=== PATIENT | female | born 1985 | race Caucasian/White ===

== ENCOUNTER → 2020-05-28 07:57 | Outpatient (CLI) | payer OTHER, SELFPAY ==
--- NOTE | ~2020-05-28 | US_ITS ---
US breast RT complete DATE: 05/28/2020 08:30 INDICATION: Right breast lump TECHNIQUE: High-resolution ultrasound imaging and color flow imaging targeted to lump at 3-4:00 area 10 cm from nipple COMPARISON: None FINDINGS: At L3-4 o'clock 10 cm from the nipple at the area of a visible small lump there is a rounde d 4.7 mm complicated cyst with through transmission and posterior enhancement within the skin, with s uggestion of a small tract toward the skin surface. Infected sebaceous cyst is suspected. IMPRESSION: BI-RADS Category 2: Benign finding; probable infected sebaceous cyst Reviewed, dictated and finalized at [facility]. Reviewed, dictated and finalized at location A. IMPRESSION: BI-RADS Category 2: Benign finding; probable infected sebaceous cys t
== END ==
PROVIDERS: PCP Nurse Practitioner Family; Visit Provider Nurse Practitioner
DX: N63.14 Unspecified lump in the right breast, lower inner quadrant (principal)
CPT/HCPCS: 76641

== ENCOUNTER → 2020-09-21 14:25 | Outpatient (REF) | payer OTHER, SELFPAY | LOC: ANHLAB 14:25 | PROVIDERS: PCP Nurse Practitioner Family; Visit Provider Nurse Practitioner | DX: L72.0 Epidermal cyst (principal) | CPT/HCPCS: 88304 ==

== ENCOUNTER → 2021-12-30 13:19 | Outpatient (CLI) | payer OTHER, SELFPAY ==
--- NOTE | ~2021-12-30 | US_ITS ---
EXAMINATION: US retroperitoneal duplex ltd DATE: 12/30/2021 14:10 INDICATION: Essential hypertension TECHNIQUE: Multiple grayscale, color Doppler, and pulsed Doppler images of the kidneys and renal savannah verito were obtained. COMPARISON: None. FINDINGS: The aorta peak systolic velocity is 133 cm/s. The right renal artery peak systolic velocity is 135 cm /s in the proximal segment, 125 cm/s in the mid segment, and 153 cm/s in the distal segment. The left renal artery peak systolic velocity is 134 cm/s in the proximal segment, 136 cm/s in the mid segment , and 121 cm/s in the distal segment. IMPRESSION: 1. No Doppler evidence of renal artery stenosis. Reviewed, dictated and finalized at location A.
== END ==
PROVIDERS: PCP Nurse Practitioner Family; Visit Provider Nurse Practitioner Family
DX: I10 Essential (primary) hypertension (principal)
CPT/HCPCS: 93976

== ENCOUNTER 2024-08-03 10:22 | Emergency (ER) | payer SELFPAY ==
--- NOTE | 2024-08-03 10:27 | ED_ITS ---
HPI - URI/Sore Throat General Chief Complaint: Upper Respiratory Infection Stated Complaint: SORE THROAT Time Seen by Provider: 08/03/24 10:40 Source: patient Mode of arrival: ambulatory Limitations: no limitations History of Present Illness HPI Narrative: Urszula is a 38-year-old female patient presenting to the clinic today with complaints of a sore throat x1 day. She reports symptoms started yesterday and her the sore throat has got work. Reports associated headache. Denies any nasal congestion. Does have a slight cough. No fever. Has had exposure to the someone with strep. She reports she also works at the [employer] MD elicited complaint: sore throat and other (Headache) Related Data Allergies Allergy/AdvReac Type Severity Reaction Status Date / Time No Known Allergies Allergy Verified 08/03/24 10:43 Review of Systems Review of Systems: Pertinent positives per HPI. Patient denies any fever, chills, rash, visual changes, dizziness, shortness of breath, chest pain, palpitations, nausea, vomiting, diarrhea, constipation, abdominal pain, or any urinary issues. [facility] Past Medical History Medical History Attention deficit disorder (ADD) without hyperactivity Depression Family history of coronary artery disease in mother Pt's mother had an CT at age 40. Hypertension Sebaceous cyst of breast Surgical History Surgical History History of classical section 2011 Family History Family History Mother Family history of chronic obstructive pulmonary disease Family history of congestive heart failure Acute myocardial infarction, Onset Age: 40 Hypertension Depression Anxiety Sibling Substance use disorder Diabetes mellitus Hypertension Anxiety Depression Grandparent Hypertension Heart disease Cerebrovascular accident Other Family history of type 1 diabetes mellitus Social History Social History Social History: Patient is and has one daughter. 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 Smoking status: Never smoker Alcohol intake: never Substance use: never Substance use type: does not use Lack of Transportation: No Lack of Food: Never True Current Housing: I Have Housing Concerned About Future Housing: No Difficulty Paying Gas/Electric Bills: No Difficulty Paying for Meds: No Currently Unemployed: No Education: Master's Degree or Higher Difficulty w/ Childcare or Family Care: No Comments At the time of my signature, I reviewed and agree with the nursing past medical, surgical, social, and family history. There is no relevant family history pertinent to the patient complaint. Exam Narrative: General: Well-developed, well nourished, in no apparent distress Head: Normocephalic, atraumatic Eyes: Pupils equally round and reactive to light bilaterally, EOM intact, sclera and conjunctive clear, no discharge, lids normal Ears: TMs intact and clear, ear canals clear, no drainage, grossly hearing normal. Nose: Nares patent, clear discharge, no inflammation, no sinus tenderness. Mouth: Oral pharynx red with bilateral tonsillar enlargement with exudate without lesions or masses, good dentition, MMM. Neck: Supple, trachea midline, enlargement of anterior cervical nodes, no thyroid masses or goiter palpable. Cardio: Regular rate and rhythm, s1 and s2 normal, no murmur appreciated. Resp: Clear to auscultation bilaterally, no rhonchi, rales, wheezing or rubs Course Course Emergency Course: Portions of this record may have been created with voice recognition software. Level of Care: Express Care Visit Vital Signs Vital signs: Vital Signs Temperature 36.6 C 08/03/24 10:44 Pulse Rate 97 08/03/24 10:44 Respiratory Rate 16 08/03/24 10:44 Blood Pressure 122/90 08/03/24 10:44 Pulse Oximetry 100 08/03/24 10:44 Temperature 36.6 C 08/03/24 10:44 Pulse Rate 97 08/03/24 10:44 Respiratory Rate 16 08/03/24 10:44 Blood Pressure 122/90 08/03/24 10:44 Pulse Oximetry 100 08/03/24 10:44 Vital signs reviewed MDM - URI/Sore Throat MDM Narrative Medical decision making narrative: At the time of visit patient is resting comfortably on the exam table. Patient appears to be nontoxic. Labs: Strep test was positive in the clinic today. Plan: Patient has strep pharyngitis. Prescription for amoxicillin was sent to the pharmacy. Supportive measures were discussed with the patient and they voiced understanding discharge instructions and agrees to treatment plan. Return precautions reviewed Differential Diagnosis Differential diagnosis: Likely upper respiratory infection, otitis media, sinusitis, viral infection, bronchitis, influenza, pharyngitis and other (COVID) Lab Data Labs: Lab Results 08/03/24 Range/Units 10:48 POC Grp A Strep Screen Positive (Negative) Discharge Plan Discharge Clinical Impression: Strep pharyngitis Patient Disposition: Home, Self-Care Condition: Stable Instructions: Antibiotic Form, Strep Throat (ED) Additional Instructions: Take prescription medications only as prescribed-amoxicillin Change your toothbrush in 24 hours after initiation of the antibiotics. Increase fluids and stay well hydrated Tylenol/motrin for pain/fever Flonase and OTC antihistamines as directed Vicks vapor rub to open sinuses Sinus rinses for congestion Cepacol spray, cough drops, throat lozenges, warm tea with honey/lemon, gargle salt water to soothe throat BRAT diet for diarrhea Clear liquids x 24 hours then advance as tolerated for nausea/vomiting Go to the ED if you develop a worsening in your condition- high fever not controlled by Tylenol or Motrin, dehydration, weakness, lethargy, shortness of breath, or chest pain. Follow up with your PCP in 3-5 days if symptoms persist. Prescriptions: New amoxicillin 875 mg tablet 875 mg PO Q12H 10 Days Qty: 20 0RF No Action bupropion HCl 300 mg tablet extended release 24 hr 300 mg PO DAILY Qty: 90 1RF citalopram 10 mg tablet 10 mg PO DAILY Qty: 90 1RF losartan-hydrochlorothiazide 50-12.5 mg tablet 1 tablet PO DAILY Qty: 90 1RF methylphenidate HCl [Concerta] 27 mg tablet extended release 24hr 27 mg PO QAM Qty: 30 0RF Follow-up/Referrals: Pepper Egan MD [Primary Care Provider] - Stand Alone Forms: Work/School Release IP Time of Disposition: 10:49 Quality NIHSS Nursing Documentation ED NIHSS nursing documentation: reviewed/agree
[2024-08-03 10:44] VITALS: BP 122/90; PULSE 97; RESP 16; TEMP 36.6; O2SAT 100
[2024-08-03 10:50] LABS: EDSTREPNEGPOS1 Positive (Negative)
== END 2024-08-03 10:56 | disposition home or self-care (01) ==
PROVIDERS: Emergency Provider Nurse Practitioner Family; PCP Family Medicine
DX: J02.0 Streptococcal pharyngitis (principal); I10 Essential (primary) hypertension
CPT/HCPCS: 87880; 99213; G0463

== ENCOUNTER 2025-02-03 07:57 | Outpatient (CLI) | payer BC, SELFPAY ==
--- OUTSIDE RECORDS SUMMARY | 2025-02-03 08:01 | XMS_ITS | Clinical Summary ---
Author Organization [facility] Address [address] [place] [address] Care Team Providers Care Pony Edger Name Role Phone Basim Rodriguez MD Primary Care Provider [phone] Alice Islas DO Unavailable [phone] Source Comments [facility],non-owned Affiliates and Associated Physician Practices is amultiple site organization consisting of ambulatory clinics and hospital sitesin [place], [place], [place] and [place]. This disclosure is being madepursuant to the Care Everywhere program and may not contain all information available regarding this patient. Last updated 18.[facility] Allergies No known active allergies Medications * Be aware that medications may not be up to date on this document. Alwaysverify current medications with the patient. BuPROPion HCl (WELLBUTRIN PO) Acti ve hydrocortisone valerate (WESTCORT) 0.2 % cream Apply to affected area 3 times daily 60 g 06/12/2019 Active Active Problems No known active problems Family History Medical History Relation Name Comments Diabetes - Type 1 Brother COPD - Chronic Obstructive Pulmonary Disease Mother Other - Cardiac Mother CHF Relation Name Status Comments Brother Mother Social History Tobacco Use Types Packs/Day Years Used Date Smoking Tobacco: Never Smokeless Tobacco: Never Alcohol Use Standard Drinks/Week Comments No 0 (1 standard drink = 0.6 oz pur e alcohol) Comments No Sex and Gender Information Value Date Recorded Sex Assigned at Not on file 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 Gender Identity Not on file Sexual Orientation Not on file Last Filed Vital Signs Vital Sign Reading Time Taken Comments Blood Pressure 118/84 06/12/2019 2:31 PM CDT Pulse 94 06/12/2019 2:31 PM CDT Temperature 37.2 C (98.9 F) 06/12/2019 2:31 PM CDT Respiratory Rate 16 06/12/2019 2:31 PM CDT Oxygen Saturation 97% 06/12/2019 2:31 PM CDT Inhaled Oxygen Concentration - - Weight 72.6 kg (160 lb) 06/12/2019 2:31 PM CDT Height 152.4 cm (5') 06/12/2019 2:31 PM CDT Body Mass Index 31.25 06/12/2019 2:31 PM CDT Plan of Treatment Health Maintenance Due Date Last Done Comments HIV SCREENING 2000 HEPATITIS C SCREENING 09/11/2003 DTAP/TDAP/TD VACCINES (1 - Tdap) 2004 HEPATITIS B VACCINE (1 of 3 - 19+ 3-dose series) 2004 COVID-19 VACCINE ( - 2023-2 5 season) 2024 DEPRESSION SCREENING 09/03/2024 INFLUENZA VACCINE (Season Ended) 2025 ZOSTER VACCINE (1 of 2) 2035 HIB VACCINE Aged Out No longer eligi ble based on patient's age to complete this topic HPV VACCINE Aged Out No longer eligi ble based on patient's age to complete this topic MENINGOCOCCAL (Group B) VACC INE SHARED DECISION-MAKING Aged Out No longer eligibl e based on patient's age to complete this topic MENINGOCOCCAL GROUPS A/C/Y/W VACCINE Aged Out No longer eligible b ased on patient's age to complete this topic PNEUMOCOCCAL VACCINE Aged Out No long er eligible based on patient's age to complete this topic Insurance [facility] Care Teams Pony Edger Relationship Specialty Start Date End Date Basim Rodriguez MD [address] [place] [address] PCP - General Family Medicine 09/02/17 Alice Islas DO [address] [place] [phone] 09/02/17
[2025-02-23 13:48] VITALS: BMI 35.2
--- NOTE | 2025-02-23 13:48 | P.SLEEP_ITS ---
Sleep Study - Home Unattended Date of Study: 02/03/25 Ordering Provider: Jovany Egan MD Interpreting Provider: Urszula Davis DO Home Sleep Study Type: Watch PAT Height: 1.52 m Weight: 81.647 kg Body Mass Index: 35.2 Neck Circumference (inches): 16 Amanda: 0 Reason for Sleep Study snoring, daytime hypersomnia Sleep History The patient is a 39-year-old female that had a sleep study ordered her primary care physician for evaluation of sleep apnea. The patient admits to snoring loudly and excessive daytime sleepiness. She denies interruptions in breathing while asleep. She denies choking or gasping at night. She denies having trouble breathing on her back. She denies morning headaches. She denies having a dry or sore mouth/ throat in the morning. She denies nocturnal heartburn. She denies nocturia. She denies having difficulty falling and staying asleep. She denies having difficulty returning to sleep if she wakes up throughout the night. She denies any hypnotic or sedative use. She denies feeling anxious about sleep. She denies feeling tired or sleepy during the day. She denies feeling tired in the morning. She denies having the urge to fall asleep during the day. She denies feeling drowsy while driving. She denies sleep paralysis, cataplexy and hypnagogic/ hypnopompic hallucinations. She denies clenching or grinding her teeth. She denies kicking or jerking her legs excessively. She denies having a restless feeling in her legs. She goes to bed at 11:00 p.m. on work days and at 11:45 p.m. on her days off. It takes her 15 minutes to fall asleep. She gets 6 hours of sleep on work days and 10 hours on her days off. Her sleep is a little more restorative on days off. She does take planned naps in the afternoon or evening that or longer than 2 hours. She denies dream enactment behavior. She denies sleep walking. She denies tobacco, alcohol and recreational drug use. [facility] Past Medical History Medical History Hypertension Attention deficit disorder (ADD) without hyperactivity Family history of coronary artery disease in mother Pt's mother had an ME at age 40. Sebaceous cyst of breast Depression Surgical History Surgical History History of classical section 2011 Family History Family History Mother Family history of chronic obstructive pulmonary disease Family history of congestive heart failure Acute myocardial infarction, Onset Age: 40 Hypertension Depression Anxiety Sibling Substance use disorder Diabetes mellitus Hypertension Anxiety Depression Grandparent Hypertension Heart disease Cerebrovascular accident Other Family history of type 1 diabetes mellitus Social History Social History Social History: Patient is and has one daughter. 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 Smoking status: Never smoker Alcohol intake: never Substance use: never Substance use type: does not use Lack of Transportation: No Lack of Food: Never True Current Housing: I Have Housing Concerned About Future Housing: No Difficulty Paying Gas/Electric Bills: No Difficulty Paying for Meds: No Currently Unemployed: No Education: Master's Degree or Higher Difficulty w/ Childcare or Family Care: No Medications Home Medications ?Medication ?Instructions ?Recorded ?Confirmed ?Type bupropion HCl 300 mg 24 hr tablet, 300 mg PO DAILY #90 tabs 08/12/24 12/22/24 Rx extended release citalopram 10 mg tablet 10 mg PO DAILY #90 tabs 09/09/24 12/22/24 Rx losartan 50 mg-hydrochlorothiazide 1 tablet PO DAILY #90 tabs 09/09/24 12/22/24 Rx 12.5 mg tablet cholecalciferol (vitamin D3) 1,250 1,250 mcg PO WEEKLY #12 tabs 12/22/24 12/22/24 Rx mcg (50,000 unit) tablet methylphenidate HCl 27 mg 27 mg PO QAM #30 tabs 02/16/25 Rx tablet,extended release 24 hr (Concerta) Sleep Procedure The sleep study was completed using [employer] a technically adequate device with seven channels: peripheral arterial tone, actigraphy, body position, snore, respiratory movement, pulse oximetry, sleep staging, and heart rate. Prior to using the device, the patient received verbal and written instructions for its application and was provided with the help desk phone number for additional telephonic instruction with 24-hour availability of qualified personnel to answer questions. The study was scored using CMS guidelines. Sleep Architecture The total recording time is 9 hrs, 10 min. The total sleep time is 8 hrs, 36 min. Sleep latency is 19 minutes. REM latency is 135 minutes. The patient had 6 episodes of waking. Sleep architecture shows 13.9% deep sleep, 62.2% light sleep, and (as % Total Sleep Time) showed NREM (Light 62.2%; Deep 13.9%), and a 23.9% stage REM. The patient spent 15.8% of total sleep time in the supine position. Sleep efficiency was 93.82. Respiratory Analysis The overall AHI (pAHI 4%:) is 15.4. The overall AHI (pAHI 3%:) is 29.1. The central AHI is 4.0. The AHI was 27.6 in NREM and 34.1 in REM sleep. The AHI was 31.0 in Supine and 28.8 in Non-supine sleep. Percent of Glenn Loza respirations is 0.0. Oximetry Data The oxygen desaturation index (SENA 4%:) is 7.7. The mean saturation is 95%, and the lowest saturation is 90%. Time spent with saturation < 88% is 0.0 minutes. Snoring Profile Snoring average intensity is 41 dB. The patient snored above 45 decibels for 24.3 minutes, 4.7% of sleep time. Cardiac Profile The average pulse rate is 74 beats per minutes. The lowest pulse rate is 47 bpm. The highest pulse rate reported is 104 bpm. Atrial fibrillation was not detected. Premature beats occur <0.1 per minute. Assessment and Plan Assessment and Plan (1) GENIA (obstructive sleep apnea): Code(s): G47.33 - Obstructive sleep apnea (adult) (pediatric) Status: Acute Assessment and Plan: The patient had an overall AHI of 15.4 with desaturation down to 90%. This is consistent with moderate sleep apnea. I recommend that the patient be prescribed Resmed AirSense 11 AutoPAP 5-15 cm H2O, CPAP mask/filters/tubing and heated humidity. A mandibular advancement device is also an acceptable treatment option. This should be used with all episodes of sleep.? Compliance should be reviewed within 31-90 days of starting therapy for usage greater than 4 hours per night greater than 70% of the nights. The patient should be asked about symptoms such as?excessive daytime sleepiness, quality of sleep, decreased nocturia, increased?mental functioning such as memory, mood, and concentration. Data The data obtained during this sleep study is adequate for interpretation. Certification This sleep study has been reviewed by a board certified sleep medicine physician .
== END 2025-02-04 12:48 | disposition home or self-care (01) ==
PROVIDERS: PCP Family Medicine; Visit Provider Family Medicine
DX: G47.10 Hypersomnia, unspecified (principal); R40.0 Somnolence; G47.33 Obstructive sleep apnea (adult) (pediatric)
CPT/HCPCS: 95800